=== PATIENT | female | born 1975 | race Caucasian/White ===

== ENCOUNTER 2022-12-18 12:49 | Inpatient (IN) | payer OTHER ==
[~2022-12-18] VITALS: Ht 152.4 cm; Wt 120.3 kg
--- NOTE | 2022-12-18 14:00 | NUR ---
Report rec'd from [place] at the [facility] in [facility] ED at 1330. Pt arrives via EMS and taken directly to dialysis. Pt immediately reports she has to have a bowel movement and was taken to the bathroom in her room via w/c. Pt able to transfer self from her w/c to [facility] without any assistance. Pt rec'd radha in the ED at . Will wait for dialysis to get patient set up and do physical and intake assessment. Pt A/O x4. Denies pain at this time. INT to LFA. Right arm restriction due to fistula. HD catheter in place to rt upper chest.
[2022-12-18 14:35] VITALS: BP 171/85; PULSE 76; TEMP 97.8
[2022-12-18] MEDS ORDERED: COZAAR100 MG PO (15:07)
[2022-12-18] MEDS ORDERED: NEURONTIN600 MG/TAB PO (15:10)
[2022-12-18] MEDS ORDERED: COREG12.5 MG PO (15:10)
[2022-12-18] MEDS ORDERED: RENAGEL800 MG PO (15:11)
[2022-12-18] MEDS ORDERED: BASAGLAR K100 UNIT/1 SQ (15:12)
--- NOTE | 2022-12-18 15:48 | NUR ---
Lavon, the rn tele, calls to report a 6 beat run of vtach. Pt now in NSR with occasional PACs. This nurse at pt's side at time of call. Pt SOA, lightheadedness or chest pain or palpitations at this time.
--- NOTE | 2022-12-18 16:18 | NUR ---
Physical assessment and intak completed. Pt continues to be dialyzed. Pt has had several incontinent loose stools since arriving.
[2022-12-18 16:30] VITALS: BP 204/87; PULSE 88; TEMP 97.8
--- NOTE | 2022-12-18 16:30 | NUR ---
Blood sugar 88- pt reports that it is low for her and requests juice. Cranberry juice given. Pt continues to be dialyzed.
--- NOTE | 2022-12-18 17:04 | NUR ---
Pt returns to room from dialysis.
--- NOTE | 2022-12-18 17:20 | NUR ---
Pt requests this nurse call the physician and request that she have a regular diet and not a renal diet. Pt also verbalizes that she will not take insulin.
--- NOTE | 2022-12-18 17:32 | NUR ---
Dr. Rowe notified via telephone of patient's request for regular diet and refusal of insulin. Order rec'd for regular diet. Dr. Rowe orders to leave SSI and accu checks in place and to have nursing document refusals if patient wishes not to recieve insulin at the time it is offered. Pt updated and verbalizes understanding.
[2022-12-18 19:40] VITALS: BP 185/75; PULSE 86; TEMP 97.6
--- NOTE | 2022-12-18 21:03 | NUR ---
LANE CROSS NP NOTIFIED OF PATIENTS REFUSAL TO HAVE BLOOD GLUCOSE CHECKS OR TO BE GIVEN ANY INSULIN REPORTED FROM THE DAY SHIFT NURSE. THIS EVENING THE PATIENT REFUSED HER 1999 BG CHECK. THE PATIENT REPORTED A HEADACHE SO A NEW ORDER WAS RECEIVED FOR TYLENOL PRN. THE PATIENT WAS RE-EDUCATED REGARDING THE NEED FOR BLOOD SUGAR CHECKS AND INSULIN INTERVENTION, THE PATIENT VERBALIZED UNDERSTANDING BUT STILL REFUSED. SYSTOLIC BP ELEVATED PRN HYDRALAZINE TO BE GIVEN. WILL MONITOR.
--- NOTE | 2022-12-18 22:36 | NUR ---
THE PATIENT TOOK OFF HER TELE TO TAKE A SHOWER AND NOW IS REFUSING TO PUT THE TELE PACK BACK ON. LANE CROSS NP NOTIFIED.
[2022-12-18 23:09] VITALS: BP 152/63; PULSE 79; TEMP 97.6
--- NOTE | 2022-12-19 00:57 | NUR ---
SHIFT NURSING ASSESSMENT COMPLETED. THE PATIENT REPORTED HEADACHE PAIN 08/02 WILL FOLLOW UP WITH LANE CROSS NP TO OBTAIN AN ORDER FOR PRN PAIN INTERVENTION MEDICATION. THE PATIENT HAS BEEN REFUSING BG STICKS AND INSULIN TREATMENTS. EDUCATION PROVIDED ON THE NEED FOR BOTH, BUT THE PATIENT CONTINUES TO REFUSE. THE PLAN OF CARE AND EVENING ORDERED MEDICATIONS DISCUSSED. THIS LADIES ATTENDANT WILL CONTINUE TO ENCOURAGE THE PATIENT TO ALLOW BG CHECKS AND INSULIN IF NEEDED. CALL LIGHT AND PERSONAL BELONGINGS WITHIN REACH. WILL MONITOR.
[2022-12-19 03:39] VITALS: BP 157/69; PULSE 80; TEMP 97.9
[2022-12-19 06:43] LABS: ALBUMIN 3.3 gm/dL (3.5-5.0); CREATININE, serum 14.7 mg/dL (0.57-1.11); MAGNESIUM 2.4 mg/dL (1.6-2.6); PHOSPHOROUS 8.9 mg/dL (2.3-4.7); POTASSIUM 4.7 mmol/L (3.5-4.5)
[2022-12-19 07:01] VITALS: BP 157/67; PULSE 73; TEMP 97.9
[2022-12-19 07:07] LABS: BASO # 0.1 K/mm3 (0.0-0.2); BASO % 0.5 % (0.0-2.0); EOS # 0.2 K/mm3 (0.0-0.7); EOS % 2.5 % (0.0-4.0); GRAN # 8.3 K/mm3 (1.4-6.5); GRAN % 87.4 % (42.2-75.2); LYMPH # 0.5 K/mm3 (1.2-3.4); LYMPH % 4.8 % (20.0-51.0); MEAN CELL VOLUME 90 fl (80.0-100.0); MEAN CORPUSCULAR HGB CONC 32 g/dl (33.0-37.0); MEAN PLATELET VOLUME 11.3 fl (7.4-10.4); MONO # 0.4 K/mm3 (0.1-0.6); MONO % 4.5 % (1.7-9.3); PLATELET COUNT 149 K/mm3 (130-400); RED BLOOD COUNT 3.13 M/mm3 (4.10-5.30); REDCELL DISTRIBUTION WIDTH-CV 13.2 % (11.5-14.5)
[2022-12-19 07:10] LABS: HEMATOCRIT 28.3 % (37.0-47.0); MEAN CORPUSCULAR HEMOGLOBIN 29 pg (27-31)
--- NOTE | 2022-12-19 09:35 | NUR ---
Assessment complete. A/O x4. Reports abdominal pain /10. Declines need for pain medication at this time. Reports two episodes of vomitting, once at 0330 and again at 0630. Continues to c/o nausea. Pt states that Zofran doesn't work for her and the only medication that will help with nausea is benadryl. Denies headache. Reports loose stools have resolved. Refuses tele. Refuses accu check/SSI this morning. Requests accu check at this time. Instructed patient that getting an accucheck 2 hours post prandial would be more accurate. Pt agreeable to have accucheck done at 1130 prior to lunch. Unable to flush INT to left forearm- patient reports it is painful. Unable to place IV in RUE- non working fistula in the forearm and pt refuses an ac or hand stick in the LUE. Apresoline administered for SBP >150. Independent in room with use of her w/c.
--- NOTE | 2022-12-19 10:07 | NUR ---
Verbal order rec'd from Dr. Rowe for benadryl. Benadryl administered po for c/o nausea.
--- NOTE | 2022-12-19 10:29 | NUR ---
SW met with patient to complete intake. Patient states she lives in [facility] with her spouse Zoltan Moore [phone] whom she appointed as DPOA/H on this day. Documentation presented, reviewed, completed, signed and witnessed by nurse. Copies provided to patient for her records and original placed in chart. Patient states that she utilizes a wheelchair due to being and amputee, independent in ADLs and does not utilize HH servies at this time. PCP is Dr. Schneider, and pharmacy is [facility]. patient states she plans to return to her home upon DC. AMBER will continue to follow. DC plan: home
--- NOTE | 2022-12-19 10:36 | NUR ---
Spoke to House Supervisior via telephone to request IV start.
[2022-12-19 11:59] VITALS: BP 170/63; PULSE 67; TEMP 98.1
--- NOTE | 2022-12-19 12:20 | NUR ---
Pt reports headache, rating pain 7/10. Ultram administered po. Pt reports one episode of vomitting since administration of benadryl. Continues to have nausea. Sprite Zero given. PAUL Montgomery ([employer]) started 22 gauge IV to LH x2 attempts- using Emla cream on hand prior to IV start. SBP 170- prn apresoline administered po. Accu check 154. Pt refuses insulin. Pt resting in bed at this time.
--- NOTE | 2022-12-19 14:36 | NUR ---
At 1423 Nadja, the dialysis nurse, came to the nurses station to request that this nurse transfer the patient to the dialysis room via bed. Pt transferred via bed to dialysis room at 1434. Pt continues to c/o nausea but was able to eat most of her lunch. She did leave a sandwich, piece of pie and another snack on her bedside table for a snack later. Reports headache pain 6/10 on pain scale.
--- NOTE | 2022-12-19 15:13 | NUR ---
Benadryl administered po for c/o nausea.
[2022-12-19 16:23] VITALS: BP 177/68; PULSE 70; TEMP 98.3
--- NOTE | 2022-12-19 16:24 | NUR ---
Pt refuses accucheck/SSI at this time.
--- NOTE | 2022-12-19 16:37 | NUR ---
Nadja from dialysis calls to report SBP of 200.
--- NOTE | 2022-12-19 16:45 | NUR ---
Scheduled blood pressure medication and prn apresoline adminsitered po.
--- NOTE | 2022-12-19 17:05 | NUR ---
Pt returns to room via bed from dialysis.
--- NOTE | 2022-12-19 18:25 | NUR ---
Ultram administered po for c/o headache- rates pain 8.5/10. States nausea is "there but is not." Encouraged patient to call for nausea medication if needed.
--- NOTE | 2022-12-19 20:02 | NUR ---
THE NURSE Izooble NOTIFIED THIS PHARMACOMETRICIAN THAT THE PATIENT REFUSED VITAL SIGN CHECK AND BLOOD GLUCOSE CHECK. THIS PHARMACOMETRICIAN WENT TO THE PATIENTS ROOM AND ASKED IF IT WOULD BE OK IF I GOT A QUICK SET OF VITAL SIGNS. THE PATIENT SAID YES. SO THE BLOOD PRESSURE CUFF WAS PUT ON AND THE PATIENT STARTED WAVING HER ARM AROUND AND THIS PHARMACOMETRICIAN ASKED HER TO TRY AND KEEP HER ARM STILL THE MOVEMENT WOULD GIVE AN INCORRECT BP. THE PATIENT GOT VERY UPSET AND STATED THAT SHE JUST NEEDED TO BE LEFT ALONE SO SHE COULD SLEEP SINCE SHE HAS A HEADACHE. THE PATIENT REFUSED MEDICATIONS, TELE, BG CHECK AND VITALS. THE PATIENT WAS INSTRUCTED THAT SHE COULD USE [facility] L[facility] SO SHE COULD HAVE HER SCHEDULED MEDS, GET VITALS TAKEN, MAYBE A BG CHECK IF SHE WAS WILLING. THE PATIENT ROLLED OVER IN HER BED AND CLOSED HER EYES. LANE CROSS NP NOTIFIED OF THE PATIENTS REFUSALS.
--- NOTE | 2022-12-20 02:40 | NUR ---
THIS PATIENT CONTINUES TO REFUSE ASSESSMENTS, MEDICATIONS, TELE, VITAL SIGN CHECKS, BLOOD GLUCOSE MONITORING AND INSULIN. THE PATIENT STATES THAT SHE JUST WANTS TO BE LEFT ALONE SO SHE CAN SLEEP. WILL TRY TO MONITOR.
[2022-12-20 02:58] VITALS: BP 184/69; PULSE 73; TEMP 98.3
--- NOTE | 2022-12-20 03:44 | NUR ---
THE PATIENT CALLED AND STATED THAT SHE WAS "SORRY FOR EARLIER." BUT IS STILL REFUSING TREATMENTS. THE PATIENT AGREED TO A VITAL SIGN CHECK AND HER BP WAS 184/69 AND THE PATIENT STATED "AND I'M HAPPY WITH THAT." THE PATIENT REFUSED ANY PRN BP MEDICATIONS, BG CHECK, AND TELE. THE PATIENT REQUESTED FRESH ICE AND IT WAS PROVIDED. WILL CONTINUE TO TRY TO MONITOR.
[2022-12-20 06:58] LABS: BASO # 0.1 K/mm3 (0.0-0.2); BASO % 0.9 % (0.0-2.0); EOS # 0.4 K/mm3 (0.0-0.7); EOS % 5.9 % (0.0-4.0); GRAN # 4.5 K/mm3 (1.4-6.5); GRAN % 59.4 % (42.2-75.2); LYMPH # 1.7 K/mm3 (1.2-3.4); LYMPH % 22.5 % (20.0-51.0); MEAN CELL VOLUME 88 fl (80.0-100.0); MEAN CORPUSCULAR HGB CONC 33 g/dl (33.0-37.0); MEAN PLATELET VOLUME 11.2 fl (7.4-10.4); MONO # 0.8 K/mm3 (0.1-0.6); MONO % 10.5 % (1.7-9.3); PLATELET COUNT 154 K/mm3 (130-400); RED BLOOD COUNT 3.05 M/mm3 (4.10-5.30)
[2022-12-20 07:17] LABS: ALBUMIN 3.3 gm/dL (3.5-5.0); CALCIUM 7.9 mg/dL (8.4-10.2); CREATININE, serum 10.7 mg/dL (0.57-1.11); MAGNESIUM 2.3 mg/dL (1.6-2.6); PHOSPHOROUS 6.9 mg/dL (2.3-4.7); POTASSIUM 4.3 mmol/L (3.5-4.5)
[2022-12-20 07:31] LABS: HEMATOCRIT 26.8 % (37.0-47.0); HEMOGLOBIN 8.9 g/dl (12.5-16.0); MEAN CORPUSCULAR HEMOGLOBIN 29 pg (27-31)
[2022-12-20 08:58] VITALS: BP 201/76; PULSE 71; TEMP 98.7
[2022-12-20 10:20] VITALS: BP 179/63
--- NOTE | 2022-12-20 10:35 | NUR ---
AMBER attended rounding this morning. Patient restrictive with her cares and is refusing BG checks, BP checks, and certain medications due to "side effects". Patient reports that she is now seeing Dr. Cabral in [place] for nephrology needs. Discharge plan: Home
[2022-12-20] MEDS ORDERED: NEURONTIN300 MG/CAP PO (10:46)
--- NOTE | 2022-12-20 10:52 | NUR ---
Pt awake and alert. Agreeable with taking AM medications and getting vital signs taken this AM. BP high, AM meds given. when rechecked, BP 179/63. Pt stated, "that's a good blood pressure for me." Refusing PRN medications, states she does not want to take any blood pressure medications she does not take at home. No complaints of pain. Mild nausea. Bed in lowest position with call light within reach.
--- NOTE | 2022-12-20 13:18 | NUR ---
Pt discharged to home, picked up by . IV and telemetry removed prior to discharge. Flu vaccine admistered per request prior to discharge in left deltoid. Educated on discharge instructions and new medications, pt verbalized understanding. Assisted to car safely.
== END 2022-12-20 13:00 | disposition home health service (06) | DRG 641 ==
LOC: MEDICAL 12:49 → EDBD 12-20 13:00 → MEDICAL 12-20 13:00
PROVIDERS: ADMIT Internal Medicine
PROC: 5A1D70Z Performance of Urinary Filtration, Intermittent, Less than 6 Hours Per Day (ICD-10-PCS; principal; 2022-12-18)
DX: E87.5 Hyperkalemia (principal); I12.0 Hypertensive chronic kidney disease with stage 5 chronic kidney disease or end stage renal disease; E11.22 Type 2 diabetes mellitus with diabetic chronic kidney disease; E11.42 Type 2 diabetes mellitus with diabetic polyneuropathy; E03.9 Hypothyroidism, unspecified; E83.39 Other disorders of phosphorus metabolism; G89.29 Other chronic pain; E78.5 Hyperlipidemia, unspecified; Z79.4 Long term (current) use of insulin; Z99.2 Dependence on renal dialysis; Z91.199 Patient's noncompliance with other medical treatment and regimen due to unspecified reason; Z89.512 Acquired absence of left leg below knee; Z89.511 Acquired absence of right leg below knee; Z88.8 Allergy status to other drugs, medicaments and biological substances
CPT/HCPCS: J1644